=== PATIENT | female | born 1990 | race Caucasian/White ===

== ENCOUNTER 2023-08-14 13:39 | Outpatient (CLI) | payer OTHER, SELFPAY ==
--- NOTE | 2023-08-14 14:00 | CRLHL7_ITS ---
For Patients: As a result of the Cures Act, medical imaging exams and procedure reports are released immediately into your electronic medical record. You may view this report before your referring provider. If you have questions, please contact your health care provider. INDICATION: First trimester scan, establish dates. COMPARISON: None. TECHNIQUE: Real-time garcia-scale imaging of the pelvis was performed. FINDINGS: Sonographic imaging demonstrates a single living intrauterine gestation. The embryo demonstrates a regular cardiac rate measuring 167 beats per minute. The embryo`s crown-rump length measurement of 1.6 cm corresponds to a gestational age of 8 weeks 0 days with a sonographic due date of 03/25/2024. There is a normal-appearing yolk sac. There are no gross abnormalities noted within the embryo at this early state of development. The gestational sac has a normal appearance. There is no evidence of a perigestational hemorrhage. The amount of fluid within the sac appears appropriate for gestational age. The cervix is closed. The myometrium appears normal. The ovaries are of normal size. Corpus luteal cyst right ovary. There are no suspicious fluid collections noted in the cul-de-sac. IMPRESSION: Normal first trimester OB ultrasound exam. Gestational age calculated at 8 weeks 0 days with a sonographic due date of 03/25/2024. Dictated by Chuck Antonio MD @ 08/16/2023 5:36:48 AM (Electronically Signed)
== END 2023-08-14 13:40 | disposition home or self-care (01) ==
LOC: US 13:40
PROVIDERS: PCP Nurse Practitioner Family; Visit Provider Advanced Practice Midwife
DX: Z34.91 Encounter for supervision of normal pregnancy, unspecified, first trimester (principal); Z3A.08 8 weeks gestation of pregnancy
CPT/HCPCS: 76817; 86592; 86703; 86704; 86706; 86762; 86787; 86803; 86850; 86900; 86901; 87086; 87340

== ENCOUNTER 2023-08-14 14:58 | Outpatient (CLI) | payer OTHER, SELFPAY | END 2023-08-14 14:59 | disposition home or self-care (01) | PROVIDERS: PCP Nurse Practitioner Family; Visit Provider Advanced Practice Midwife | DX: Z34.81 Encounter for supervision of other normal pregnancy, first trimester (principal) | CPT/HCPCS: 86592; 86703; 86704; 86706; 86762; 86787; 86803; 86850; 86900; 86901; 87086; 87340 ==

== ENCOUNTER 2023-11-06 08:06 | Outpatient (CLI) | payer OTHER, SELFPAY ==
--- NOTE | 2023-11-06 08:15 | CRLHL7_ITS ---
For Patients: As a result of the 21st Century Cures Act, medical imaging exams and procedure reports are released immediately into your electronic medical record. You may view this report before your referring provider. If you have questions, please contact your health care provider. OBSTETRICAL ULTRASOUND, 11/06/2023 CLINICAL HISTORY: screen. ELIZABETH by LMP: 03/22/2024. GA: 20w, 3d. INDICATION: screen. COMPARISON: 08/13/2000. FINDINGS: position: Vertex. Cervix: Visualized. Technique: Transabdominal. Length of closed cervix: 4.5 cm. Placenta/cord: Posterior. Placenta tip to internal OS: 5.7 cm. Umbilical Cord: 3-vessel cord. Placenta insertion: Central. Amniotic Fluid: 4.1 cm SDP, normal SURVEY: Observed Structures Calvarium/Spine: Cerebellum: 20 cm, 20w 4d. Cisterna Magna: 5.1 mm. Nuchal Fold: 4.5 mm. Lateral Ventricle: 5.6 mm. CSP: Yes. Midline Falx: Yes. Choroid Plexus: Yes. Spine: Yes. Abdomen: Stomach: Yes. Abd Cord Insertion: Yes. Urinary Bladder: Yes. Kidneys: Yes. Diaphragm: Yes. Face: Nose/lips: Yes. Orbital view: Yes. Profile: Yes. Limbs: Upper Extremities: Yes. Lower Extremities: Yes. Hands: Yes. Feet: Yes. Vascular: Four-Chamber Heart: Yes. LVOT: Yes. RVOT: Yes. 3VV: Yes. 3VTV: Yes. BPD: 4.6 cm. 19w 6d, 27 percent. HC: 17.2 cm. 19w 5d, 15 percent. AC: 15.0 cm. 20w 2d, 37 percent. FL: 31 cm. 19w 5d, 18 percent. FL/AC: 20.79 percent. HC/AC Ratio: 1.15. Heart rate: 144 beats per minute. age by this US: 20w 0d. ELIZABETH by this US: 03/25/2024. EFW: 323 g. Weight: 0 lbs, 11 oz. Percentile by ELIZABETH: 22 percent. IMPRESSION: 1. Measurements are consistent with dates. Good interval growth since prior exam. 2. Normal anatomic survey. KIMBERLYN PENA M.D. Transcribed: 10:13 a.m. [email or web address] JR/Dictated by: Kimberlyn Pena MD @ 11/07/2023 8:17:00 AM (Electronically Signed)
== END 2023-11-06 08:07 | disposition home or self-care (01) ==
LOC: US 08:07
PROVIDERS: PCP Nurse Practitioner Family; Visit Provider Advanced Practice Midwife
DX: Z34.92 Encounter for supervision of normal pregnancy, unspecified, second trimester (principal); Z3A.20 20 weeks gestation of pregnancy
CPT/HCPCS: 76805

== ENCOUNTER 2023-12-25 18:15 | Outpatient (CLI) | payer OTHER, SELFPAY | END 2023-12-25 18:16 | disposition home or self-care (01) | LOC: NFLDREF 12-28 08:15 | PROVIDERS: PCP Nurse Practitioner Family; Referring Provider Nurse Practitioner Family; Visit Provider Advanced Practice Midwife | DX: Z34.92 Encounter for supervision of normal pregnancy, unspecified, second trimester (principal); Z3A.27 27 weeks gestation of pregnancy | CPT/HCPCS: 86592 ==

== ENCOUNTER 2024-02-19 18:12 | Outpatient (CLI) | payer OTHER, SELFPAY ==
[2024-02-21 14:40] LABS: Strep B DNA Probe Negative (Negative)
[2024-02-21 15:46] LABS: Strep B Susceptibility Needed? No
== END 2024-02-19 18:13 | disposition home or self-care (01) ==
LOC: NFLDREF 18:14
PROVIDERS: PCP Nurse Practitioner Family; Visit Provider Advanced Practice Midwife
DX: Z34.93 Encounter for supervision of normal pregnancy, unspecified, third trimester (principal); Z3A.35 35 weeks gestation of pregnancy
CPT/HCPCS: 87081; 87653

== ENCOUNTER 2024-03-21 07:06 | Inpatient (IN) | payer OTHER, SELFPAY ==
[2024-03-21] VITALS (42 sets, daily range): BP systolic 98–131; BP diastolic 54–86; PULSE 75–135; RESP 16–20; TEMP 36.7–37.3; O2SAT 92–100; BMI 30.9
--- NOTE | 2024-03-21 07:51 | P.LDBA_ITS ---
Subjective History of Present Illness Date Seen: 03/21/24 Narrative: Lisa is being admitted to Labor and Delivery for elective IOL. She is a 33 year old at 39.6 weeks gestation. Her full history and physical was dictated by Katy Woodward CNM on 02/29/24. Please see this for details. Lisa has been mercy irregularly since her last appointment but nothing that has continued. We reviewed options for IOL including Cytotec, Pitocin titration, and AROM. She states the she has had Pitocin with her other inductions and desires this again. Her last labor was about 5 hours from the start of the induction but she started at 5cm dilation. She would like to consider AROM after contractions have began. She is unsure what she plans for pain management. She has had epidurals in the past but is considering unmedicated especially if her labor and delivery are fast like her last delivery. Encouraged movement and labor warm up to promote physiologic labor and . Specific Issues/Plans : Jose E Unknown gender! 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 # Hx abnormal pap ASCUS HPV- in 2014. All normal since. Due 02/2027. # Hx shoulder dystocia resolved with Fannie. No time given. # Hx 3rd degree laceration with 1st delivery. COVID: initial series, not boosted, declined TDAP: 01/09/2024 Flu: 01/10/2024 Hep B nonimmune, booster this . Works in healthcare. booster(09/04/23) HGB: PHQ/DMITRY: completed 02/06/2024 Imagin08/14/2023 First tri US: Normal first trimester OB ultrasound exam. Gestational age calculated at 8 weeks 0 days with a sonographic due date of 03/25/2024. 11/06/2023 Anatomy US: Normal anatomy, No previa, growth 22%ile, placenta posterior OB - Problem Based A/P Additional Plan (1) Encounter for induction of labor: Status: Acute (2) History of third degree perineal laceration: Problem details: with first delivery in 2019 Status: Acute (3) History of shoulder dystocia: Problem details: no time given, resolved with Fannie Status: Acute Plan ASSESSMENT:? at 39.6 weeks gestation? GBS negative? complicated by: history of?shoulder dystocia and 3rd degree laceration. Labor type: Elective IOL? Blood type:?O+ PLAN:? 1. Reviewed risks and benefits of IOL with Pitocin vs Cytotec vs AROM. Pt prefers Pitocin titration. Will consider AROM if needed or desires.? 2. Candidate for analgesia of choice. Uncertain if she planning unmedicated or epidural.? 3. Anticipate ? 4. Encouraged position changes and labor warm up to promote physiologic labor and . 5. Place IV for Pitocin titration. 6. Continuous monitor per policy for Pitocin IOL. ? Delivery/Labor/Induction Plan Plan: induction Induction method: per pitocin protocol OB Result Labs Blood Type: O (+) positive Rubella: immune RPR/VDLR: nonreactive GBS Status: negative HBsAG: negative OB Exam Physical Exam Vital signs: Temp Pulse BP Pulse Ox 98.5 F 93 121/78 100 03/21/24 07:21 03/21/24 07:21 03/21/24 07:21 03/21/24 07:19 Narrative: Psychiatric:? Alert and oriented x3? HEENT:? Normocephalic, atraumatic? Neck:? Supple without adenopathy or thyromegaly? Lungs:? Clear to auscultation bilaterally? Heart:? Regular rate and rhythm, no murmur, rub or gallop? Abdomen:? Soft, nontender, and gravid? Extremities:? No edema or erythema? Detailed Labor and Delivery Exam Patient Gravid: Yes Dilation (cm): 2 Effacement (%): 50 Cervix position: mid Consistency: medium Contraction Frequency: occasional Tachysystole: No Contraction intensity: Mild Fetus (Single) Station: -3 Amniotic Membrane Status: intact Heart Rate Baseline: 145 Monitor Accelerations: Present Monitor Decelerations: None Importer Or Exporter Variability: Moderate (6-25)
[2024-03-21] MEDS: OXYTOCIN 30 unit/500 ML in NS 30 UNIT/500 ML BAG IVPB (08:30)
[2024-03-21] MEDS: LACTATED RINGERS 1000 ML 1,000 ML 125 ML IV ×2 (08:30→18:49)
[2024-03-21 08:51] LABS: Basophils Absolute Auto 0.01 K/uL (0.00-0.30); Basophils Percent Auto 0.1 % (0.0-3.0); Eosinophils Absolute Auto 0.03 K/uL (0.00-0.50); Eosinophils Percent Auto 0.4 % (0.0-7.0); Hematocrit 38.4 % (33.0-51.0); Hemoglobin* 13.1 gm/dL (12.0-16.0); Immature Granulocytes Abs Auto 0.05 K/uL (0.00-0.30); Immature Granulocytes Pct Auto 0.6 %; Lymphocytes Percent Auto 11.8 % (20-44); Mean Corpuscular HGB Conc 34 gm/dL (32-36); Mean Corpuscular Hemoglobin 30 pg (26-34); Mean Corpuscular Volume 88 fL (80-100); Monocytes Percent Auto 5.9 % (0.0-11.0); Neutrophils Percent Auto 81.2 % (42.0-72.0); Platelet Count* 152 K/uL (140-440); RDW Coefficient of Variation % 13.1 % (11.5-15.5); Red Blood Count 4.37 m/uL (4.00-5.20); White Blood Count* 8.42 K/uL (4.50-11.00)
[2024-03-21 09:07] LABS: Slide Review Reflex No
--- NOTE | 2024-03-21 15:23 | P.OBPN_ITS ---
Subjective Date Seen: 03/21/24 Narrative: Lisa has been on Pitocin titration since this morning and is current;y on 10 and mercy regularly. She has started to feel more uncomfortable with these contractions over the past hour and requested a SVE and to consider AROM if possible. Cervical exam showed unchanged cervical dilation and effacement but it is more anterior and fetus has moved to -2 station. Still slightly ballotable so decision was made not to AROM at this time. Will consider again as contractions continue to increase in intensity when it is safe to consider. Encouraged her to rest if able and if not to continue with labor warm up to help progress labor. Questions answered. Objective Vital Signs: Last Vital Signs Temp 98.2 F 03/21/24 15:16 Pulse 83 03/21/24 15:16 BP 98/54 L 03/21/24 15:16 Pulse Ox 100 03/21/24 07:19 Pelvic Exam Dilation (cm): 2 Effacement (%): 50 Station: -2 Contractions Monitor mode: External Contraction Frequency: 2-5 min Contraction pattern: Regular Contraction intensity: Mild Pitocin Rate (mU/min): 10 Assessment Assessment: induction ongoing Station: -2 Status: Category l Heart Rate Baseline: 150 Residential Variability: Moderate (6-25) Monitor Accelerations: Present Monitor Decelerations: None Plan Plan: ASSESSMENT: ? 33 at 39.6 weeks gestation ? complicated by: history of?shoulder dystocia and 3rd degree laceration. Labor type: Induction ongoing ? Continuous monitoring per policy. Category 1 tracing. ? Labor complicated by: none ? GBS negative ? ? PLAN: ? 1. Routine intrapartum cares as ordered. Continue with induction? 2. Monitoring continuous with Pitocin titration. ? 3. Candidate for analgesia of choice. Planning unmedicated but open to epidural. Candidate for analgesia of choice. 4. Patient encouraged to reposition and ambulate to promote physiologic labor and . ? 5. Anticipate .???
--- NOTE | 2024-03-21 17:50 | PM.OBPNL ---
Subjective Date Seen: 03/21/24 Narrative: Lisa is continuing with induction with Pitocin. She is starting to breath and work through contractions now. Offered SVE and to consider AROM which she desires. SVE 4cm/60%/-2 with a bulging bag and baby well applied to the cervix. She desires AROM which was performed without difficulty with moderate amount of clear fluid. Tolerated well. Denies questions at this time. Anticipate NVD. Objective Vital Signs: Last Vital Signs Temp 98.2 F 03/21/24 15:16 Pulse 83 03/21/24 15:16 BP 98/54 L 03/21/24 15:16 Pulse Ox 100 03/21/24 07:19 Pelvic Exam Dilation (cm): 4 Effacement (%): 60 Station: -2 Contractions Monitor mode: External Contraction Frequency: 2-3 Contraction pattern: Regular Contraction intensity: Strong/Firm Pitocin Rate (mU/min): 10 Assessment Assessment: active labor and induction ongoing Station: -2 Status: Category l Heart Rate Baseline: 145 Fpc Variability: Moderate (6-25) Monitor Accelerations: Present Monitor Decelerations: None Plan Plan: ASSESSMENT: ? 33 at 39.6 weeks gestation ? complicated by: history of?shoulder dystocia and 3rd degree laceration. Labor type: Induction ongoing, active labor, AROM? Continuous monitoring per policy. Category 1 tracing. ? Labor complicated by: none ? GBS negative ? ? PLAN: ? 1. Routine intrapartum cares as ordered. Continue with induction. AROM with moderate amount of clear fluid. 2. Monitoring continuous with Pitocin titration. ? 3. Candidate for analgesia of choice. Planning unmedicated but open to epidural. Candidate for analgesia of choice. 4. Patient encouraged to reposition and ambulate to promote physiologic labor and . ? 5. Anticipate NVD.?
[2024-03-21] MEDS: BUPIVACAINE 0.25% PF 10 ML 10 ML ML EPIDURAL (18:47)
[2024-03-21] MEDS: ROPIVACAINE 0.2% 100 ml 100 ML 12 MG EPIDURAL (18:47)
--- NOTE | 2024-03-21 18:51 | P.ANBPRC_ITS ---
[facility] Medical History History of third degree perineal laceration ?Z87.59 - Personal history of other complications of , childbirth and the puerperium (ICD-10) History of shoulder dystocia Hx of abnormal cervical Pap smear ?Z87.42 - Personal history of other diseases of the female genital tract (ICD-10) Surgical History [place] teeth extracted ?K08.409 - Partial loss of teeth, unspecified cause, unspecified class (ICD- 10) H/O elbow surgery ?Z98.890 - Other specified postprocedural states (ICD-10) Family History Father High blood pressure Maternal Grandmother Ovarian cancer Social History Narrative: SOCIAL Education: Masters 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 Lives with: and 3 kids Pets: none Abuse: Denies past/present Special Diet: Denies Ok with a blood transfusion: yes Culture or sikh beliefs: denies RISK FACTORS Exercise Times/wk: beach body workouts 3-5 days a week Depression/Anxiety: denies DMITRY: 1 PHQ 9: 0 Seat Belt Use: Routinely Smoking: Denies past/present Alcohol/day: Denies while or prior to Caffeine: not currently but prior 1-2 cups per day Drug Use: Denies past/present Chicken Pox: Yes as a child MRSA: Denies What is your current living situation?: I presently have a place to live Problems where you live: no known problems In the past 12 months, utilities in danger of being shut off: no In past 12 months, lack of transportation kept you from medical appts, meetings, work, or getting things needed for daily living: no In the past 12 mos, have been you worried that your food would run out before you had money to buy more?: never true In the past 12 mos, the food you bought just didn't last and you didn't have money to buy more?: never true Smoking Status: Never smoker How often does anyone, including family, friends and others, physically hurt you : never How often does anyone, including family, friends and others, insult or talk down to you: never How often does anyone, including family, friends and others, threaten you with harm: never How often does anyone, including family, friends and others, scream or curse at you: never Meds Home Medications and Allergies Home Medications ?Medication ?Instructions ?Recorded ?Confirmed ?Type vits 75-iron 28 mg-folic 1 pkg PO DAILY PRN 08/14/23 03/21/24 History acid 800 mcg-omega3 440 mg oral pack (One Daily ) Allergies Allergy/AdvReac Type Severity Reaction Status Date / Time Penicillins Allergy Mild Hives Verified 03/17/24 08:36 Results Labs Labs: Laboratory Results - last 24 hr 03/21/24 08:43 WBC 8.42 RBC 4.37 Hgb 13.1 Hct 38.4 MCV 88 MCH 30 MCHC 34 RDW Coeff of Margaret 13.1 Plt Count 152 Neut % (Auto) 81.2 H Lymph % (Auto) 11.8 L [place] % (Auto) 5.9 Eos % (Auto) 0.4 Baso % (Auto) 0.1 Neut # (Auto) 6.80 Lymph # (Auto) 1.00 [place] # (Auto) 0.50 Eos # (Auto) 0.03 Baso # (Auto) 0.01 Abs Immat Gran (auto) 0.05 Imm/Tot Granulo (auto) 0.6 Blood Type O Positive Antibody Screen NEGATIVE Vital Signs Vital Signs: Last Vital Signs Temp 98.2 F 03/21/24 15:16 Pulse 82 03/21/24 18:49 BP 119/67 03/21/24 18:49 Pulse Ox 100 03/21/24 18:47 Weight: 79.379 kg Height: 160.02 cm Anesthesia Procedures Epidural Insertion Patient Location: OB Start Time: 18:20 Stop Time: 18:52 Start Date: 03/21/24 Stop Date: 03/21/24 Reason for Block: procedure for pain Patient Position: sitting Performed By: Madhu Diaz Preanesthetic Checklist: IV checked, risks and benefits discussed, monitors and equipment checked, pre-op evaluation, timeout performed and anesthesia consent Prep: chlorhexidine gluconate Monitoring: blood pressure monitoring, continuous pulse oximetry and heart rate Approach: midline Vertebral Space: lumbar (1-5) Epidural Technique: PETE saline Needle Type: Tuohy needle Injection Technique: continuous catheter Needle gauge: 17 Needle Length (cm): 10 cm Needle Insertion Depth (cm): 7 Catheter Gauge: 19 Catheter Type: multi-orifice Catheter at skin depth (cm): 13 Test Dose Result: negative and lidocaine 1.5% with epinephrine 1 to 200,000
[2024-03-21] MEDS: ONDANSETRON 2 MG/ML inj 4 MG IV (19:22)
[2024-03-21] MEDS: OXYTOCIN 30 unit/500 ML in NS 30 UNIT/500 ML BAG 314 UNIT IVPB (20:14)
--- NOTE | 2024-03-21 20:49 | W.PM.OBVAGDE ---
OB Procedure Vag Delivery Mother Details Mother Details: The patient is a 33 year-old, 4, Para 3, admitted on 03/21/24 at 39.6Days gestation. : 4 Para: 3 Weeks Gestation: 39.6 Admission Date: 03/21/24 Additional Details Amniotic Membrane Status: AROM Amniotic Membrane Rupture Date: 03/21/24 Amniotic Membrane Rupture Time: 17:39 Amniotic Membrane Fluid Description: Clear Analgesia/Anesthesia Type: Epidural Waterbirth: No Pitcoin: Yes Intrapartal Events: Labor Induction Induction Method: per pitocin protocol and AROM Labor Onset: 18:00 Complete: 19:47 Pushin:56 Heart: heart tones during second stage were category 2, variable decels with pushing with return to baseline between contractions; moderate variability present throughout. Delivery Details Delivery Date: 03/21/24 Delivery Time: 20:13 Route of delivery: Gender: Female Infant Viability: Alive; Heart Rate Present Position at Delivery: OA Delivery Details: Upon RN cleansing urethra for insertion of Mccoy, pt developed a small laceration to the R side of urethra with brisk bright red bleeding; CNM called to room. Pad weight was 192g. Bleeding slowed with direct pressure applied to the area and completely resolved during the second stage. Delivered via spontaneous vaginal delivery. Infant was placed on maternal abdomen.? Cord was clamped and cut after a 3 minute delay. Nose and mouth were bulb suctioned.? Infant weight pending. Inspection of the perineum following delivery shows labia and vagina with significant edema; bleeding laceration near urethra difficult to visualize and hemostatic therefore was not repaired. Will monitor closely. EBL from delivery an additional 200cc. 1 Minute Interval Total Score: 8 5 Minute Interval Total Score: 9 Additional Details Shoulder Dystocia: No Placenta Delivery Time: 20:22 Placental Delivery Description: Spontaneous Delivery repair: Vicryl Procedure Done: Global Blood Loss: 200 Laceration: Perineal - 2nd Degree Episiotomy Description: None Blood Loss Measurement Type: QBL Bakri Used: No Sponge/Need Count Correct: Yes Cord Vessel Description: 3 Vessels Event Summary Status: Mother and infant were stable after delivery. Disposition: floor
[2024-03-21] MEDS: IBUPROFEN 600 MG TABLET PO (22:47)
[2024-03-22] MEDS: ACETAMINOPHEN 500 MG TABLET 1000 MG PO ×4 (02:44→23:01)
[2024-03-22 04:08] VITALS: BP 108/67; PULSE 79; RESP 12; TEMP 36.9; O2SAT 97
[2024-03-22] MEDS: IBUPROFEN 600 MG TABLET PO ×3 (06:08→19:15)
[2024-03-22 07:04] LABS: Hemoglobin* 10.8 gm/dL (12.0-16.0)
[2024-03-22 09:00] VITALS: BP 115/75; PULSE 100; RESP 18; O2SAT 98
[2024-03-22] MEDS: DOCUSATE SODIUM 100 MG CAPSULE PO (09:54)
--- NOTE | 2024-03-22 10:52 | PM.ANPOST ---
Post Anesthesia Note Post Anesthesia Note Patient seen: Inpatient Respiratory Status: adequate Cardiovascular Status: adequate Mental Status: baseline Pain: adequate Temp: baseline Anesthetic awareness: N/A Complications: none Follow care: none
--- NOTE | 2024-03-22 13:49 | PM.OBPNVD1 ---
OB - PN:Subj Subjective Date Seen: 03/22/24 Narrative: Lisa is a 33 year old who was admitted for elective IOL at 39w6d and proceeded to have a vaginal with a 2nd degree laceration that was repaired.The patient feels well.? The pain is well controlled with current medications.? She has no new complaints.? Urinary output is adequate and she is voiding without difficulty.? Has a good appetite, is tolerating a general diet, is passing flatus, and has not had a bowel movement.? Has small amount of rubra lochia.? She is ambulating well. She is and reports it is going well.? OB - PN: Obj Exam Physical Exam: Vital signs: Temp Pulse Resp BP Pulse Ox O2 Del Method 98.4 F 100 18 115/75 98 Room Air 03/22/24 04:08 03/22/24 09:00 03/22/24 09:00 03/22/24 09:00 03/22/24 09:00 03/22/24 09:00 Narrative: GENERAL APPEARANCE:? normal affect, alert, no distress MOOD:? appropriate CHEST:? clear to auscultation HEART:? regular rate and rhythm ABDOMEN:? soft, non-tender the uterine fundus is 1 cm below Umbilicus, Midline and is appropriate for the stage of recovery, per nursing. PERINEUM:? mild edema of the perineum, there is a Perineal Laceration,?with minimal edema and well approximated. No disruption of periurethral tissue visualized. EXTREMITIES:? normal and no edema OB - PN: Obj Data Labs Labs: Laboratory Results - last 24 hr 03/22/24 06:49 Hgb 10.8 L OB - PN: A/P Delivery Assessment and Plan (1) care and examination of lactating mother: Status: Acute (2) Second degree perineal laceration during delivery: Status: Acute Plan Comments: PP day #1 Routine care May see as desired Anticipate discharge 03/23/2024
[2024-03-22 14:16] VITALS: BP 108/70; PULSE 99; RESP 16; TEMP 36.7; O2SAT 98
[2024-03-22 17:24] VITALS: BP 117/82; PULSE 99; RESP 14; O2SAT 98
[2024-03-22 19:21] VITALS: BP 113/74; PULSE 92; RESP 16; TEMP 36.3; O2SAT 98
[2024-03-22 23:04] VITALS: BP 113/69; PULSE 92; RESP 15; TEMP 36.6; O2SAT 97
[2024-03-23] MEDS: IBUPROFEN 600 MG TABLET PO ×2 (02:00→08:17)
[2024-03-23] MEDS: ACETAMINOPHEN 500 MG TABLET 1000 MG PO (05:15)
[2024-03-23 08:01] VITALS: BP 119/78; PULSE 100; RESP 16; TEMP 36.7; O2SAT 97
[2024-03-23] MEDS: DOCUSATE SODIUM 100 MG CAPSULE PO (08:16)
--- NOTE | 2024-03-23 09:09 | PM.OBDSVD1 ---
DS: Providers Provider Date Seen: 03/23/24 Date of admission: 03/21/24 07:06 Primary care physician: Marjan Aguilar CNP Admitting Clinician: Tammy Woodward CNM Attending Physician on discharge: Tino LUNDBERG [employer] OPERATOR Date of Discharge: 03/23/24 DS: Diagnosis Discharge Diagnosis (1) Second degree perineal laceration during delivery: Status: Acute (2) care and examination of lactating mother: Status: Acute Exam Narrative: Exam Narrative: GENERAL APPEARANCE:? normal affect, alert, no distress MOOD:? appropriate CHEST:? clear to auscultation HEART:? regular rate and rhythm ABDOMEN:? soft, non-tender the uterine fundus is 1cm below Umbilicus, Midline and is appropriate for the stage of recovery. PERINEUM:? deferred, examined yesterday with no change per patient EXTREMITIES:? normal and no edema Const: Vital Signs, click to edit/add: Vital Signs - 24 hr 03/22/24 14:16 03/22/24 17:24 03/22/24 19:21 Temperature 98.0 F 97.4 F L Pulse Rate [Pulse Oximeter] 99 99 92 Respiratory Rate 16 14 16 Blood Pressure [Ri ght Arm] 108/70 117/82 113/74 Pulse Oximetry 98 98 98 Oxygen Delivery Me thod Room Air Room Air Room Air 03/22/24 23:04 03/23/24 08:01 Temperature 97.8 F 98.0 F Pulse Rate [Pulse Oximeter] 92 100 Respiratory Rate 15 16 Blood Pressure [Ri ght Arm] 113/69 119/78 Pulse Oximetry 97 97 Oxygen Delivery Me thod Room Air Room Air OB - DS: Summary Hospital Course Hospital Course: Lisa is a 33 y.o. G 4 P 4004 who was admitted to [facility] for elective IOL at term.? She had a NVD that was uncomplicated. The patient feels well.? The pain is well controlled with current medications.? She has no new complaints.? She is breast feeding and reports things are going well. the patient has done well.? Vitals have been stable.? She has remained afebrile.? Has a good appetite, is tolerating a general diet.? She is voiding without difficulty.? She is passing gas and has had a small bowel movement.? She is ambulating and denies any dizziness.? Has small amount of rubra lochia. She is planning condoms, then pill for prevention.? ?? Problems: none? ?? plan:? Discharge home with baby.? Follow up in 2 weeks and 6 weeks.? , may see if needed? Hgb 10.8. ?? Peripartum Data delivery method: Vaginal Laceration description: Perineal - 2nd Degree complications: none Alexander Gender: Female Discharge Plan: Home Status at Discharge Overall status at discharge: patient is progressing back to baseline Time Spent with Patient Time attestation: Total time spent providing and/or coordinating discharge services: Time spent: Less than 30 minutes Discharge Plan Discharge Disposition: Home, Self-Care Date of Admission: 03/21/24 07:06 Attending Provider on Discharge: Mikaela Lucas Primary Care Provider: Marjan Aguilar Condition: Stable Anticipated Discharge Date/Time: 03/23/24 10:00 Discharge Medications: Continued One Daily [id number] mg-mcg-mg combo pack 1 pkg PO DAILY PRN Discharge Orders: Discharge Order (Routine); Ordered 03/23/24 Ordered By: Mikaela Lucas Patient Education: OB Care, OB Vaginal/Breast Feeding Additional Instructions: Discharge instructions were reviewed with the patient including signs and symptoms of infection and home going medications Nothing vaginally for 6 weeks: no tampons or intercourse Do not drive while taking narcotic pain medication(s) Off Work or School for 6 weeks Symptoms to report to doctor: Bleeding that saturates more than one pad per hour Passing clots larger than the size of a golf ball Pain not relieved by prescribed medication Fever above 100.4 degrees Fahrenheit A foul vaginal odor Difficulty in emotions, mood, and functions Thoughts of hurting yourself and/or Painful, reddened area in your breast Any drainage, redness, or tenderness in your IV/epidural site Severe headache that doesn't improve after taking medications Changes in vision, including temporary loss of vision, blurred vision, and/or light sensitivity Upper abdominal pain (usually under ribs on the right side) Decrease in urination or painful, frequent urinating Chest pain Shortness of breath Tenderness or pain with redness and/swelling in the calf(s) of your leg 2-week visit: discuss feeding concerns, review control options and screen for anxiety/depression. 6-week visit for an annual exam. consultation services are available to all mothers and babies for the first year after delivery.? To make an appointment, please call [phone]. For pain control of perineum, breast and pelvic pain, take 600 mg Ibuprofen every 6 hours as needed by mouth or 1000 mg acetaminophen (Tylenol) every 6 hours by mouth as needed. You can alternate these so you are taking something every 3 hours as needed. A heating pad can also be used for your abdomen or breasts. You may also take docusate sodium up to twice daily to soften your stools and help to prevent constipation. You may wean off of it when your stools return to normal.? Follow Up Appointments: Marjan Aguilar PUBLIC POLICY ANALYST [Primary Care Provider] - Forms: [facility] Instructions
[2024-03-23 18:08] LABS: Rapid Plasma Reagin (RPR) Non Reactive (Non Reactive)
== END 2024-03-23 10:56 | disposition home or self-care (01) | DRG 806 ==
PROVIDERS: Advanced Practice Midwife; Admitting Provider Advanced Practice Midwife; PCP Nurse Practitioner Family; Visit Provider Advanced Practice Midwife
DX: O70.1 Second degree perineal laceration during delivery (principal); O71.5 Other obstetric injury to pelvic organs; Z37.0 Single live birth; Z3A.39 39 weeks gestation of pregnancy; Z87.59 Personal history of other complications of pregnancy, childbirth and the puerperium; Z87.42 Personal history of other diseases of the female genital tract
CPT/HCPCS: 01967; 36415; 85018; 85025; 86592; 86850; 86900; 86901; A9270; J0665; J2371; J2405; J2795; J7120